=== PATIENT | female | born 1950 | race Caucasian/White ===

== ENCOUNTER → 2022-08-24 | Outpatient (CLI) | payer MEDICARE, SELFPAY ==
--- NOTE | 2022-08-24 14:05 | RAD_ITS ---
STUDY: X-RAY - PELVIS AND LEFT HIP REASON FOR EXAM: Female, 72 years old. PAIN TECHNIQUE: 3 views of the pelvis and hip. COMPARISON: None. FINDINGS: There is a non-specific bowel gas pattern. Normal visualized soft tissue structures. Normal bilateral iliac wings, sacroiliac joints and visualized sacrum. Normal bilateral superior and inferior pubic rami. Normal pubic symphysis. Normal bilateral ischial tuberosities. Subchondral cystic changes of the bilateral femoral heads and mild narrowing of the joint spaces consistent with degenerative arthritic changes more severe on the left. RAD/HIP, UNI W/ Pelvis 2-3 Views IMPRESSION: Degenerative changes of the hips slightly worse on the left. No acute fracture or other significant bony pathology Electronically Signed: Isaias Elder MD at 20:39 EDT ,
[2022-08-24 15:40] LABS: Absolute Lymphocyte Count 1.99 X10^3/uL (0.83-4.51); Absolute Neutrophil Count 4.5 X10^3/uL (2.0-7.7); Basophil# 0.04 X10^3/uL; Basophil% 0.6 % (0-1); Eosinophil# 0.04 X10^3/uL; Eosinophils% 0.6 % (0-5); Hemoglobin 14.1 g/dL (12.0-15.0); Lymphocyte # 1.99 X10^3/ul (0.83-4.51); Lymphocyte % 27.6 % (19-41); Mean Corpuscular Hgb 30.7 pg (27.0-32.0); Mean Corpuscular Volume 95.7 fL (81-99); Mean Platelet Vol. 9.2 fl (6.2-12.0); Monocyte# 0.65 X10^3/uL; NRBC Flagged by Analyzer 0 % (0-5); Neutrophil # 4.48 X10^3/uL (2.7-7.7); Neutrophil % 61.9 % (47-70); Platelet Count 192 K/mm3 (150-450); RBC Distribution Width CV 13.9 % (11.6-14.6); RBC Distribution Width SD 48.6 fl (35.1-43.9); White Blood Count 7.2 K/mm3 (4.4-11.0)
[2022-08-24 16:00] LABS: ALB/GLOB Ratio 1.2 RATIO (0.9-2.4); AST(SGOT) 19 U/L (15-37); Alanine Aminotransfer ALT/SGPT 23 U/L (13-56); Albumin, Serum 3.9 g/dL (3.2-5.0); Alkaline Phosphatase 55 U/L (45-117); Anion Gap 4 (5-15); BUN 20 mg/dL (7-18); BUN/Creat Ratio 31.1 RATIO (10-20); CRP < 2.90 mg/L (0.0-3.0); Chloride 110 mmol/L (98-107); Creatinine, Serum 0.64 mg/dL (0.55-1.02); EST Glomerular Filtration Rate 97 mL/min (>60); Erythrocyte Sedimentation Rate 2 mm/hr (0-30); Est Glom Filt Rate - Afr Amer 117 mL/min (>60); Globulin 3.2 g/dL (2.2-4.2); Glucose 101 mg/dL (74-106); Potassium 4.1 mmol/L (3.5-5.1); Protein, Total 7.1 g/dL (6.4-8.2); Rheumatoid Factor < 10.0 IU/mL (<15); Sodium Level 142 mmol/L (136-145)
[2022-08-24 16:32] LABS: Hepatitis B Surface Antibody Non-Reactive; Hepatitis B Surface Antigen Non-Reactive (Nonreactive); Hepatitis C Antibody Non-Reactive (Nonreactive)
[2022-08-26 13:07] LABS: CCP IgG Antibodies 3 units (0-19)
== END | disposition home or self-care (01) ==
LOC: MTLAB 13:59
PROVIDERS: PCP Internal Medicine; Referring Provider Internal Medicine Rheumatology; Visit Provider Internal Medicine Rheumatology
DX: M06.4 Inflammatory polyarthropathy (principal); M47.892 Other spondylosis, cervical region; M47.897 Other spondylosis, lumbosacral region
CPT/HCPCS: 36415; 73502; 80053; 85025; 85652; 86140; 86200; 86431; 86706; 86803; 87340